=== PATIENT | male | born 2000 | race Caucasian/White ===

== ENCOUNTER → 2021-06-21 | Outpatient (CLI) | payer OTHER | LOC: HYPER 11:55 | PROVIDERS: ATTEND Emergency Medicine Emergency Medical Services | DX: T81.31XA Disruption of external operation (surgical) wound, not elsewhere classified, initial encounter (principal); L98.492 Non-pressure chronic ulcer of skin of other sites with fat layer exposed; L05.91 Pilonidal cyst without abscess; Y92.238 Other place in hospital as the place of occurrence of the external cause; Y83.8 Other surgical procedures as the cause of abnormal reaction of the patient, or of later complication, without mention of misadventure at the time of the procedure ==

== ENCOUNTER → 2021-06-28 | Outpatient (CLI) | payer OTHER | LOC: HYPER 07:44 | PROVIDERS: ATTEND Emergency Medicine Emergency Medical Services | DX: T81.31XD Disruption of external operation (surgical) wound, not elsewhere classified, subsequent encounter (principal); L98.492 Non-pressure chronic ulcer of skin of other sites with fat layer exposed; L05.91 Pilonidal cyst without abscess; Y83.8 Other surgical procedures as the cause of abnormal reaction of the patient, or of later complication, without mention of misadventure at the time of the procedure ==

== ENCOUNTER → 2021-07-12 | Outpatient (CLI) | payer OTHER | LOC: HYPER 07:37 | PROVIDERS: ATTEND Emergency Medicine | DX: T81.31XD Disruption of external operation (surgical) wound, not elsewhere classified, subsequent encounter (principal); L98.492 Non-pressure chronic ulcer of skin of other sites with fat layer exposed; L05.91 Pilonidal cyst without abscess; Y83.8 Other surgical procedures as the cause of abnormal reaction of the patient, or of later complication, without mention of misadventure at the time of the procedure ==

== ENCOUNTER → 2021-07-26 | Outpatient (CLI) | payer OTHER | LOC: HYPER 07:40 | PROVIDERS: ATTEND Emergency Medicine Emergency Medical Services | DX: T81.31XD Disruption of external operation (surgical) wound, not elsewhere classified, subsequent encounter (principal); L98.492 Non-pressure chronic ulcer of skin of other sites with fat layer exposed; L05.91 Pilonidal cyst without abscess; Y83.8 Other surgical procedures as the cause of abnormal reaction of the patient, or of later complication, without mention of misadventure at the time of the procedure ==

== ENCOUNTER → 2021-08-16 | Outpatient (CLI) | payer OTHER | LOC: HYPER 07:43 | PROVIDERS: ATTEND Emergency Medicine Emergency Medical Services | DX: T81.31XD Disruption of external operation (surgical) wound, not elsewhere classified, subsequent encounter (principal); L98.492 Non-pressure chronic ulcer of skin of other sites with fat layer exposed; L05.91 Pilonidal cyst without abscess; Y83.8 Other surgical procedures as the cause of abnormal reaction of the patient, or of later complication, without mention of misadventure at the time of the procedure ==